=== PATIENT | female | born 1995 | race Caucasian/White ===

== ENCOUNTER → 2017-01-07 | Outpatient (CLI) | payer BC ==
[2017-01-07 15:47] LABS: CHLORIDE,CL 103 mmol/L (98-110); SODIUM,NA 139 mmol/L (136-146)
== END ==
LOC: MW.CHFP 14:47
PROVIDERS: ATTEND Physician Assistant
DX: J02.9 Acute pharyngitis, unspecified (principal); R50.9 Fever, unspecified; R63.4 Abnormal weight loss; R30.0 Dysuria
CPT/HCPCS: 36415; 80053; 81001; 85025; 85652; 86308; 87081; 87086; 87880

== ENCOUNTER → 2017-01-10 | Outpatient (CLI) | payer BC | LOC: MW.CHFP 08:33 | PROVIDERS: ATTEND Nurse Practitioner Family | DX: R39.9 Unspecified symptoms and signs involving the genitourinary system (principal) | CPT/HCPCS: 81001; 87086 ==

== ENCOUNTER 2018-07-30 10:23 | Inpatient (IN) | payer BC ==
[2018-07-30] MEDS ORDERED: Methylergonovine 0.2 MG/1 ML Amp IM PRN (10:55)
[2018-07-30] MEDS ORDERED: Water For Irrigation,Sterile 1,000 ML Container IRR PRN (10:55)
[2018-07-30] MEDS ORDERED: Sodium Chloride 0.9% 10 ML Syringe FLUSH PRN (10:55)
[2018-07-30] MEDS ORDERED: Nalbuphine 10 MG/1 ML Vial IVPUSH PRN (10:55)
[2018-07-30] MEDS ORDERED: Tranexamic Acid 1,000 MG in Sodium Chloride 0.9% 100 ML IV PRN (10:55)
[2018-07-30] MEDS ORDERED: Butorphanol 1 MG/ML SDV IVPUSH PRN (10:55)
[2018-07-30] MEDS ORDERED: Lidocaine 1% 50 ML MDV INJECT PRN (10:55)
[2018-07-30] MEDS ORDERED: Sodium Chloride 0.9% 2.5 ML Syringe FLUSH PRN (10:55)
[2018-07-30] MEDS ORDERED: Misoprostol 200 MCG Tab PO PRN (10:55)
[2018-07-30] MEDS ORDERED: Carboprost Tromethamine 250 MCG/1 ML Amp IM PRN (10:55)
[2018-07-30] MEDS ORDERED: Oxytocin/0.9 % Sodium Chloride 30 UNIT/500 ML BAG IV SCH ×2 (11:00→18:00)
[2018-07-30] MEDS ORDERED: Ondansetron 4 MG/2 ML SDV IVPUSH PRN (11:47)
[2018-07-30] MEDS: Lactated Ringers 1,000 ML IV SCH ×4 (14:04→21:45)
--- NOTE | 2018-07-30 15:14 | PCM.PREANE ---
Preanesthetic Assessment - Anesthesia/Transfusion/Family Hx Family History of Anesthesia Reaction: No - Review of Systems General: No Symptoms Pulmonary: No Symptoms Cardiovascular: No Symptoms Gastrointestinal: No Symptoms Neurological: No Symptoms Other: Reports: None (Denies any personal or family hx of bleeding or clotting problems) - Physical Assessment Height: 1.73 m Weight: 138.346 kg ASA Class: 3 Mental Status: Alert & Oriented x3 Airway Class: Mallampati = 3 Dentition: Reports: Normal Dentition ROM/Head Extension: Full - Lab Values: Laboratory Last Values WBC 13.96 K/uL (4.0-11.0) H 07/30/18 11:05 RBC 4.60 M/uL (4.30-5.90) 07/30/18 11:05 Hgb 13.3 g/dL (12.0-16.0) 07/30/18 11:05 Hct 38.9 % (36.0-46.0) 07/30/18 11:05 MCV 84.6 fL (80.0-98.0) 07/30/18 11:05 MCH 28.9 pg (27.0-32.0) 07/30/18 11:05 MCHC 34.2 g/dL (31.0-37.0) 07/30/18 11:05 RDW Std Deviation 44.8 fl (28.0-62.0) 07/30/18 11:05 RDW Coeff of Lopez 15 % (11.0-15.0) 07/30/18 11:05 Plt Count 219 K/uL (150-400) 07/30/18 11:05 MPV 8.40 fL (7.40-12.00) 07/30/18 11:05 Nucleated RBC % 0.0 /100WBC 07/30/18 11:05 Nucleated RBCs # 0 K/uL 07/30/18 11:05 Blood Type A NEGATIVE 07/30/18 11:05 Antibody Screen NEGATIVE 07/30/18 11:05 - Allergies Allergies/Adverse Reactions: Allergies Allergy/AdvReac Type Severity Reaction Status Date / Time No Known Allergies Allergy Verified 11/25/15 15:54 - Acknowledgements Anesthesia Type Planned: Epidural Pt an Appropriate Candidate for the Planned Anesthesia: Yes Alternatives and Risks of Anesthesia Discussed w Pt/Guardian: Yes Pt/Guardian Understands and Agrees with Anesthesia Plan: Yes PreAnesthesia Questionnaire - Past Health History Medical/Surgical History: Denies Medical/Surgical History - Past Surgical History HEENT Surgical History: Reports: Adenoidectomy, Tonsillectomy Other HEENT Surgeries/Procedures: bilateral ear surgery as an , - HOME MEDS Home Medications: Home Meds Docusate Sodium [Colace] 50 mg PO BID PRN 07/30/18 [History] Doxylamine Succinate [Unisom Sleep Aid] 25 mg PO BEDTIME PRN 07/30/18 [History] Iron 27 mg PO DAILY 07/30/18 [History] Ondansetron HCl [Zofran] 4 mg PO 07/30/18 [History] DSY523/Iron Fumarate/FA/DSS [ 19 Tablet] 1 each PO DAILY 07/30/18 [ History] - CURRENT (IN HOUSE) MEDS Current Meds: Current Medications Butorphanol Tartrate (Stadol) 1 mg IVPUSH Q1H PRN PRN Reason: Pain Last Admin: 07/30/18 14:04 Dose: 1 mg Carboprost Tromethamine (Hemabate Ds) 250 mcg IM ASDIRECTED PRN PRN Reason: Post Hemorrhage Lactated Ringer's (Ringers, Lactated) 1,000 mls @ 150 mls/hr IV ASDIRECTED NELLI Last Admin: 07/30/18 14:55 Dose: 150 mls/hr Oxytocin/Sodium Chloride (Oxytocin 30 Unit/500 Ml-Ns) 30 unit in 500 mls @ 500 mls/hr IV TITRATE NELLI Tranexamic Acid 1,000 mg/ (Sodium Chloride) 110 mls @ 660 mls/hr IV ONETIME PRN PRN Reason: Bleeding Lidocaine HCl (Xylocaine 1%) 50 ml INJECT ONETIME PRN PRN Reason: Laceration repair Methylergonovine Maleate (Methergine) 0.2 mg IM ASDIRECTED PRN PRN Reason: Post Hemorrhage Misoprostol (Cytotec) 200 mcg PO ONETIME PRN PRN Reason: Post Hemorrhage Nalbuphine HCl (Nubain) 10 mg IVPUSH Q1H PRN PRN Reason: Pain (severe 7-10) Ondansetron HCl (Zofran) 4 mg IVPUSH Q6H PRN PRN Reason: Nausea/Vomiting Sodium Chloride (Saline Flush) 10 ml FLUSH ASDIRECTED PRN PRN Reason: Keep Vein Open Sodium Chloride (Saline Flush) 2.5 ml FLUSH ASDIRECTED PRN PRN Reason: Keep Vein Open Sterile Water (Sterile Water For Irrigation) 1,000 ml IRR ASDIRECTED PRN PRN Reason: delivery Discontinued Medications Fentanyl/Bupivacaine HCl (Kzwxopfz-Gabpu-Ya 2 Mcg/Ml-0.125%) Confirm Administered Dose 100 mls @ as directed EP .[facility] ONE Stop: 07/30/18 14:26
--- NOTE | 2018-07-30 23:37 | PCM.DEL ---
L & D Note - General Info Date of Service: 07/30/18 - Delivery Note Labor: Spontaneous, Augmented by ARM Delivery Outcome: Livebirth Presentation: Right Occiput Anterior (DOMINIC) Nuchal Cord: None Anesthesia Type: Epidural Anesthetic: Lidocaine (Xylocaine) 1% Plain Local Anesthetic Volume: 3cc Amniotic Fluid Description: Meconium Stained Laceration: 3rd Degree Suture type: Vicryl, Other (Fibers of anal sphincter repaired with vicryl 2.0 in an overlapping fashion .vagina mucosa and perineal skin repaired with monocryl 2.0 ) Placenta: Intact Cord: 3 Vessels Estimated Blood Loss: 400 Resuscitation Needed: No [place]: Bulb Syringe Score 1 min: 9 Score 5 min: 9 Delivery Comments (Free Text/Narrative):: Live male delivered at 2149 9/9 weight 3810g 3rd degree laceration noted , anal sphincter repaired with 2.0 vicryl and vagina mucosa and perineal body repaired with 2.0 monocryl - General Info Date of Service: 07/30/18 - Patient Data Weight - Most Recent: 138.346 kg Lab Results Last 24 Hours: Laboratory Results - last 24 hr 07/30/18 07/30/18 Range/Units 11:05 11:05 WBC 13.96 H (4.0-11.0) K/uL RBC 4.60 (4.30-5.90) M/uL Hgb 13.3 (12.0-16.0) g/dL Hct 38.9 (36.0-46.0) % MCV 84.6 (80.0-98.0) fL MCH 28.9 (27.0-32.0) pg MCHC 34.2 (31.0-37.0) g/dL RDW Std Deviation 44.8 (28.0-62.0) fl RDW Coeff of Lopez 15 (11.0-15.0) % Plt Count 219 (150-400) K/uL MPV 8.40 (7.40-12.00) fL Nucleated RBC % 0.0 /100WBC Nucleated RBCs # 0 K/uL Blood Type A NEGATIVE Antibody Screen NEGATIVE Med Orders - Current: Current Medications Butorphanol Tartrate (Stadol) 1 mg IVPUSH Q1H PRN PRN Reason: Pain Last Admin: 07/30/18 14:04 Dose: 1 mg Carboprost Tromethamine (Hemabate Ds) 250 mcg IM ASDIRECTED PRN PRN Reason: Post Hemorrhage Lactated Ringer's (Ringers, Lactated) 1,000 mls @ 150 mls/hr IV ASDIRECTED NELLI Last Admin: 07/30/18 21:45 Dose: 150 mls/hr Oxytocin/Sodium Chloride (Oxytocin 30 Unit/500 Ml-Ns) 30 unit in 500 mls @ 500 mls/hr IV TITRATE NELLI Last Admin: 07/30/18 22:41 Dose: 500 mls/hr Tranexamic Acid 1,000 mg/ (Sodium Chloride) 110 mls @ 660 mls/hr IV ONETIME PRN PRN Reason: Bleeding Oxytocin/Sodium Chloride (Oxytocin 30 Unit/500 Ml-Ns) 30 unit in 500 mls @ 2 mls/hr IV TITRATE NELLI; Protocol Last Infusion: 07/30/18 21:49 Dose: 999 munits/min, 999 mls/hr Lidocaine HCl (Xylocaine 1%) 50 ml INJECT ONETIME PRN PRN Reason: Laceration repair Last Admin: 07/30/18 21:55 Dose: 50 ml Methylergonovine Maleate (Methergine) 0.2 mg IM ASDIRECTED PRN PRN Reason: Post Hemorrhage Misoprostol (Cytotec) 200 mcg PO ONETIME PRN PRN Reason: Post Hemorrhage Nalbuphine HCl (Nubain) 10 mg IVPUSH Q1H PRN PRN Reason: Pain (severe 7-10) Ondansetron HCl (Zofran) 4 mg IVPUSH Q6H PRN PRN Reason: Nausea/Vomiting Sodium Chloride (Saline Flush) 10 ml FLUSH ASDIRECTED PRN PRN Reason: Keep Vein Open Sodium Chloride (Saline Flush) 2.5 ml FLUSH ASDIRECTED PRN PRN Reason: Keep Vein Open Sterile Water (Sterile Water For Irrigation) 1,000 ml IRR ASDIRECTED PRN PRN Reason: delivery Last Admin: 07/30/18 22:03 Dose: 1,000 ml Discontinued Medications Fentanyl/Bupivacaine HCl (Ybbtnvbx-Nzabb-Pl 2 Mcg/Ml-0.125%) Confirm Administered Dose 100 mls @ as directed EP .[facility] ONE Stop: 07/30/18 14:26 - Problem List & Annotations (1) Vaginal delivery SNOMED Code(s): 333402559 Code(s): O80 - ENCOUNTER FOR FULL-TERM UNCOMPLICATED DELIVERY Status: Acute Current Visit: Yes - Problem List Review Problem List Initiated/Reviewed/Updated: Yes - My Orders Last 24 Hours: My Active Orders 07/30/18 23:10 RHOGAM, [RHIG WORKUP, ] [BBK] Routine
[2018-07-30] MEDS ORDERED: Witch Hazel Medicated Pads 40/Jar TOP PRN (23:38)
[2018-07-30] MEDS ORDERED: Lanolin 100% Cream 7 GM Tube TOP PRN (23:38)
[2018-07-30] MEDS ORDERED: Ibuprofen 400 MG Tab PO PRN (23:38)
[2018-07-30] MEDS ORDERED: Acetaminophen 500 MG Tab PO PRN ×2 (23:38)
[2018-07-30] MEDS ORDERED: oxyCODONE 5 MG Tab PO PRN (23:38)
[2018-07-30] MEDS ORDERED: Benzocaine/Menthol 20%-0.5% Spray 78 GM Cannister TOP PRN (23:38)
[2018-07-30] MEDS ORDERED: Bisacodyl 10 MG Supp RECTAL PRN (23:38)
[2018-07-30] MEDS ORDERED: Docusate Sodium 100 MG Cap PO PRN (23:38)
[2018-07-31] MEDS ORDERED: Docusate Sodium 100 MG Cap PO PRN (00:52)
[2018-07-31] MEDS ORDERED: Ibuprofen 400 MG Tab PO PRN (00:52)
[2018-07-31] MEDS ORDERED: Acetaminophen 500 MG Tab PO PRN ×2 (00:52)
[2018-07-31] MEDS ORDERED: oxyCODONE 5 MG Tab PO PRN (00:52)
[2018-07-31] MEDS ORDERED: Witch Hazel Medicated Pads 40/Jar TOP PRN (00:52)
[2018-07-31] MEDS ORDERED: Ibuprofen 800 MG Tab PO PRN (00:52)
[2018-07-31] MEDS ORDERED: Benzocaine/Menthol 20%-0.5% Spray 78 GM Cannister TOP PRN (00:52)
[2018-07-31] MEDS ORDERED: Lanolin 100% Cream 7 GM Tube TOP PRN (00:52)
[2018-07-31] MEDS ORDERED: Bisacodyl 10 MG Supp RECTAL PRN (00:52)
[2018-07-31] MEDS: Ibuprofen 800 MG Tab PO PRN ×3 (01:49→20:48)
[2018-07-31] MEDS: Docusate Sodium 100 MG Cap PO SCH ×2 (08:10→20:47)
--- NOTE | 2018-07-31 08:16 | PCM.PNPP ---
<Latia Perez - Last Filed: 07/31/18 08:14> - General Info Date of Service: 07/31/18 Functional Status: Reports: Pain Controlled, Tolerating Diet, Ambulating, Urinating - Review of Systems General: Denies: Fever, Weakness, Fatigue Pulmonary: Denies: Shortness of Breath, Pleuritic Chest Pain, Cough Cardiovascular: Denies: Chest Pain, Palpitations, Dyspnea on Exertion Gastrointestinal: Denies: Abdominal Pain Genitourinary: Denies: Dysuria - General Info Date of Service: 07/31/18 - Patient Data Vital Signs - Most Recent: Last Vital Signs Temp 36.8 C 07/31/18 04:56 Pulse 74 07/31/18 04:56 Resp 16 07/31/18 04:56 BP 108/51 L 07/31/18 04:56 Pulse Ox 98 07/31/18 04:56 Weight - Most Recent: 138.346 kg I&O - Last 24 Hours: Intake & Output 07/30/18 07/31/18 07/31/18 22:59 06:59 14:59 Intake Total 2 Balance 2 Lab Results - Last 24 Hours: Laboratory Results - last 24 hr 07/30/18 07/30/18 07/30/18 Range/Units 11:05 11:05 23:10 WBC 13.96 H (4.0-11.0) K/uL RBC 4.60 (4.30-5.90) M/uL Hgb 13.3 (12.0-16.0) g/dL Hct 38.9 (36.0-46.0) % MCV 84.6 (80.0-98.0) fL MCH 28.9 (27.0-32.0) pg MCHC 34.2 (31.0-37.0) g/dL RDW Std Deviation 44.8 (28.0-62.0) fl RDW Coeff of Lopez 15 (11.0-15.0) % Plt Count 219 (150-400) K/uL MPV 8.40 (7.40-12.00) fL Nucleated RBC % 0.0 /100WBC Nucleated RBCs # 0 K/uL Blood Type A NEGATIVE Antibody Screen NEGATIVE Screen NEGATIVE (NEGATIVE) RhIG Candidate? YES Rhogam Indicated YES, BABY RH POS H KB Screen Cancelled KB Cells Counted Cancelled KB Red Cells Counted Cancelled KB % Cells Cancelled Doses of RhIg Required Cancelled 07/31/18 Range/Units 05:00 WBC (4.0-11.0) K/uL RBC (4.30-5.90) M/uL Hgb 10.9 L (12.0-16.0) g/dL Hct 32.7 L (36.0-46.0) % MCV (80.0-98.0) fL MCH (27.0-32.0) pg MCHC (31.0-37.0) g/dL RDW Std Deviation (28.0-62.0) fl RDW Coeff of Lopez (11.0-15.0) % Plt Count (150-400) K/uL MPV (7.40-12.00) fL Nucleated RBC % /100WBC Nucleated RBCs # K/uL Blood Type Antibody Screen Screen (NEGATIVE) RhIG Candidate? Rhogam Indicated KB Screen KB Cells Counted KB Red Cells Counted KB % Cells Doses of RhIg Required Med Orders - Current: Current Medications Acetaminophen (Tylenol Extra Strength) 500 mg PO Q4H PRN PRN Reason: Pain Acetaminophen (Tylenol Extra Strength) 1,000 mg PO Q4H PRN PRN Reason: Pain Acetaminophen (Tylenol Extra Strength) 500 mg PO Q4H PRN PRN Reason: Pain Acetaminophen (Tylenol Extra Strength) 1,000 mg PO Q4H PRN PRN Reason: Pain Benzocaine/Menthol (Dermoplast Pain Relief 20%-0.5% [place]) 78 gm TOP ASDIRECTED PRN PRN Reason: Perineal Comfort Measure Last Admin: 07/31/18 01:50 Dose: 1 canister Benzocaine/Menthol (Dermoplast Pain Relief 20%-0.5% [place]) 78 gm TOP ASDIRECTED PRN PRN Reason: Perineal Comfort Measure Bisacodyl (Dulcolax) 10 mg RECTAL ONETIME PRN PRN Reason: Constipation Bisacodyl (Dulcolax) 10 mg RECTAL ONETIME PRN PRN Reason: Constipation Carboprost Tromethamine (Hemabate Ds) 250 mcg IM ASDIRECTED PRN PRN Reason: Post Hemorrhage Docusate Sodium (Colace) 100 mg PO BID PRN PRN Reason: Constipation Docusate Sodium (Colace) 100 mg PO BID [facility] Last Admin: 07/31/18 08:10 Dose: 100 mg Docusate Sodium (Colace) 100 mg PO BID PRN PRN Reason: Constipation Emollient Ointment (Lansinoh Hpa) 0 gm TOP ASDIRECTED PRN PRN Reason: Sore Nipples Emollient Ointment (Lansinoh Hpa) 0 gm TOP ASDIRECTED PRN PRN Reason: Sore Nipples Lactated Ringer's (Ringers, Lactated) 1,000 mls @ 150 mls/hr IV ASDIRECTED NELLI Last Admin: 07/30/18 21:45 Dose: 150 mls/hr Oxytocin/Sodium Chloride (Oxytocin 30 Unit/500 Ml-Ns) 30 unit in 500 mls @ 500 mls/hr IV TITRATE [facility] Last Admin: 07/30/18 22:41 Dose: 500 mls/hr Tranexamic Acid 1,000 mg/ (Sodium Chloride) 110 mls @ 660 mls/hr IV ONETIME PRN PRN Reason: Bleeding Oxytocin/Sodium Chloride (Oxytocin 30 Unit/500 Ml-Ns) 30 unit in 500 mls @ 2 mls/hr IV TITRATE [facility]; Protocol Last Infusion: 07/30/18 21:49 Dose: 999 munits/min, 999 mls/hr Ibuprofen (Motrin) 400 mg PO Q4H PRN PRN Reason: Pain Ibuprofen (Motrin) 800 mg PO Q6H PRN PRN Reason: Pain Last Admin: 07/31/18 08:11 Dose: 800 mg Ibuprofen (Motrin) 400 mg PO Q4H PRN PRN Reason: Pain Ibuprofen (Motrin) 800 mg PO Q6H PRN PRN Reason: Pain Lidocaine HCl (Xylocaine 1%) 50 ml INJECT ONETIME PRN PRN Reason: Laceration repair Last Admin: 07/30/18 21:55 Dose: 50 ml Methylergonovine Maleate (Methergine) 0.2 mg IM ASDIRECTED PRN PRN Reason: Post Hemorrhage Misoprostol (Cytotec) 200 mcg PO ONETIME PRN PRN Reason: Post Hemorrhage Ondansetron HCl (Zofran) 4 mg IVPUSH Q6H PRN PRN Reason: Nausea/Vomiting Oxycodone HCl (Oxycodone) 5 mg PO Q2H PRN PRN Reason: Pain Oxycodone HCl (Oxycodone) 5 mg PO Q2H PRN PRN Reason: Pain Sodium Chloride (Saline Flush) 10 ml FLUSH ASDIRECTED PRN PRN Reason: Keep Vein Open Sodium Chloride (Saline Flush) 2.5 ml FLUSH ASDIRECTED PRN PRN Reason: Keep Vein Open Sterile Water (Sterile Water For Irrigation) 1,000 ml IRR ASDIRECTED PRN PRN Reason: delivery Last Admin: 07/30/18 22:03 Dose: 1,000 ml Witch Ivette (Tucks) 1 pad TOP ASDIRECTED PRN PRN Reason: comfort care Witch Ivette (Tucks) 1 pad TOP ASDIRECTED PRN PRN Reason: comfort care Discontinued Medications Butorphanol Tartrate (Stadol) 1 mg IVPUSH Q1H PRN PRN Reason: Pain Last Admin: 07/30/18 14:04 Dose: 1 mg Nalbuphine HCl (Nubain) 10 mg IVPUSH Q1H PRN PRN Reason: Pain (severe 7-10) - Interaction Infant Disposition, : in Room with Family Interaction: Holding Infant Feeding: Attempted ; Nursed Fair/Poor Support Person: Significant Other - Recovery Exam Fundal Tone: Firm Fundal Level: 1 Fingerbreadths Below Umbilicus Fundal Placement: Midline Lochia Amount: Scant Lochia Color: Rubra/Red Episiotomy/Laceration: None Bladder Status: Voiding Urinary Elimination: Voided - Exam General: Alert, Oriented Neck: Supple Lungs: Clear to Auscultation, Normal Respiratory Effort Cardiovascular: Regular Rate, Regular Rhythm GI/Abdominal Exam: Normal Bowel Sounds, Soft, Non-Tender, No Distention Extremities: Normal Inspection, Normal Capillary Refill, Pedal Edema (trace) Skin: Warm, Dry, Intact - Problem List & Annotations (1) Vaginal delivery SNOMED Code(s): 836085969 Code(s): O80 - ENCOUNTER FOR FULL-TERM UNCOMPLICATED DELIVERY Status: Acute Current Visit: Yes - Problem List Review Problem List Initiated/Reviewed/Updated: Yes - Assessment Assessment:: PPD #1 s/p , 3rd degree laceration. Minimal pain and lochia. Work on breast feeding today. Anticipate discharge home tomorrow. - Plan Plan:: Continue routine post- cares. <Lidya Zendejas - Last Filed: 07/31/18 19:07> - Patient Data Vital Signs - Most Recent: Last Vital Signs Temp 36.8 C 07/31/18 16:00 Pulse 86 07/31/18 16:00 Resp 18 07/31/18 16:00 BP 109/50 L 07/31/18 16:00 Pulse Ox 97 07/31/18 16:00 I&O - Last 24 Hours: Intake & Output 07/31/18 07/31/18 07/31/18 06:59 14:59 22:59 Intake Total 2 Balance 2 Lab Results - Last 24 Hours: Laboratory Results - last 24 hr 07/30/18 07/31/18 Range/Units 23:10 05:00 Hgb 10.9 L (12.0-16.0) g/dL Hct 32.7 L (36.0-46.0) % Screen NEGATIVE (NEGATIVE) RhIG Candidate? YES Rhogam Indicated YES, BABY RH POS H KB Screen Cancelled KB Cells Counted Cancelled KB Red Cells Counted Cancelled KB % Cells Cancelled Doses of RhIg Required Cancelled Med Orders - Current: Current Medications Acetaminophen (Tylenol Extra Strength) 500 mg PO Q4H PRN PRN Reason: Pain Acetaminophen (Tylenol Extra Strength) 1,000 mg PO Q4H PRN PRN Reason: Pain Acetaminophen (Tylenol Extra Strength) 500 mg PO Q4H PRN PRN Reason: Pain Acetaminophen (Tylenol Extra Strength) 1,000 mg PO Q4H PRN PRN Reason: Pain Benzocaine/Menthol (Dermoplast Pain Relief 20%-0.5% [place]) 78 gm TOP ASDIRECTED PRN PRN Reason: Perineal Comfort Measure Last Admin: 07/31/18 01:50 Dose: 1 canister Benzocaine/Menthol (Dermoplast Pain Relief 20%-0.5% [place]) 78 gm TOP ASDIRECTED PRN PRN Reason: Perineal Comfort Measure Bisacodyl (Dulcolax) 10 mg RECTAL ONETIME PRN PRN Reason: Constipation Bisacodyl (Dulcolax) 10 mg RECTAL ONETIME PRN PRN Reason: Constipation Carboprost Tromethamine (Hemabate Ds) 250 mcg IM ASDIRECTED PRN PRN Reason: Post Hemorrhage Docusate Sodium (Colace) 100 mg PO BID PRN PRN Reason: Constipation Docusate Sodium (Colace) 100 mg PO BID [facility] Last Admin: 07/31/18 08:10 Dose: 100 mg Docusate Sodium (Colace) 100 mg PO BID PRN PRN Reason: Constipation Emollient Ointment (Lansinoh Hpa) 0 gm TOP ASDIRECTED PRN PRN Reason: Sore Nipples Emollient Ointment (Lansinoh Hpa) 0 gm TOP ASDIRECTED PRN PRN Reason: Sore Nipples Lactated Ringer's (Ringers, Lactated) 1,000 mls @ 150 mls/hr IV ASDIRECTED NELLI Last Admin: 07/30/18 21:45 Dose: 150 mls/hr Oxytocin/Sodium Chloride (Oxytocin 30 Unit/500 Ml-Ns) 30 unit in 500 mls @ 500 mls/hr IV TITRATE [facility] Last Admin: 07/30/18 22:41 Dose: 500 mls/hr Tranexamic Acid 1,000 mg/ (Sodium Chloride) 110 mls @ 660 mls/hr IV ONETIME PRN PRN Reason: Bleeding Oxytocin/Sodium Chloride (Oxytocin 30 Unit/500 Ml-Ns) 30 unit in 500 mls @ 2 mls/hr IV TITRATE [facility]; Protocol Last Infusion: 07/30/18 21:49 Dose: 999 munits/min, 999 mls/hr Ibuprofen (Motrin) 400 mg PO Q4H PRN PRN Reason: Pain Ibuprofen (Motrin) 800 mg PO Q6H PRN PRN Reason: Pain Last Admin: 07/31/18 08:11 Dose: 800 mg Ibuprofen (Motrin) 400 mg PO Q4H PRN PRN Reason: Pain Ibuprofen (Motrin) 800 mg PO Q6H PRN PRN Reason: Pain Lidocaine HCl (Xylocaine 1%) 50 ml INJECT ONETIME PRN PRN Reason: Laceration repair Last Admin: 07/30/18 21:55 Dose: 50 ml Methylergonovine Maleate (Methergine) 0.2 mg IM ASDIRECTED PRN PRN Reason: Post Hemorrhage Misoprostol (Cytotec) 200 mcg PO ONETIME PRN PRN Reason: Post Hemorrhage Ondansetron HCl (Zofran) 4 mg IVPUSH Q6H PRN PRN Reason: Nausea/Vomiting Oxycodone HCl (Oxycodone) 5 mg PO Q2H PRN PRN Reason: Pain Oxycodone HCl (Oxycodone) 5 mg PO Q2H PRN PRN Reason: Pain Sodium Chloride (Saline Flush) 10 ml FLUSH ASDIRECTED PRN PRN Reason: Keep Vein Open Sodium Chloride (Saline Flush) 2.5 ml FLUSH ASDIRECTED PRN PRN Reason: Keep Vein Open Sterile Water (Sterile Water For Irrigation) 1,000 ml IRR ASDIRECTED PRN PRN Reason: delivery Last Admin: 07/30/18 22:03 Dose: 1,000 ml Witch Ivette (Tucks) 1 pad TOP ASDIRECTED PRN PRN Reason: comfort care Witch Ivette (Tucks) 1 pad TOP ASDIRECTED PRN PRN Reason: comfort care Discontinued Medications Butorphanol Tartrate (Stadol) 1 mg IVPUSH Q1H PRN PRN Reason: Pain Last Admin: 07/30/18 14:04 Dose: 1 mg Nalbuphine HCl (Nubain) 10 mg IVPUSH Q1H PRN PRN Reason: Pain (severe 7-10) - Problem List & Annotations (1) Vaginal delivery SNOMED Code(s): 376396385 Code(s): O80 - ENCOUNTER FOR FULL-TERM UNCOMPLICATED DELIVERY Status: Acute Current Visit: Yes - My Orders Last 24 Hours: My Active Orders 07/30/18 23:38 Patient Status [ADT] Routine Vital Signs [RC] PER UNIT ROUTINE Acetaminophen [Tylenol Extra Strength] 1,000 mg PO Q4H PRN Acetaminophen [Tylenol Extra Strength] 500 mg PO Q4H PRN Benzocaine/Menthol [Dermoplast Pain Relief 20%-0.5% [place]] 78 gm TOP ASDIRECTED PRN Bisacodyl [Dulcolax] 10 mg RECTAL ONETIME PRN Docusate Sodium [Colace] 100 mg PO BID PRN Ibuprofen [Motrin] 400 mg PO Q4H PRN Ibuprofen [Motrin] 800 mg PO Q6H PRN Lanolin [Lansinoh HPA] See Dose Instructions TOP ASDIRECTED PRN Witch Ivette [Tucks] 1 pad TOP ASDIRECTED PRN oxyCODONE 5 mg PO Q2H PRN Assess Lochia [WOMSER] Per Unit Routine Assess Uterine Involution [WOMSER] Per Unit Routine Peripheral IV Discontinue [OM.PC] Routine 07/31/18 00:52 Patient Status [ADT] Routine May Shower [RC] ASDIRECTED Up ad Izzy [RC] ASDIRECTED Acetaminophen [Tylenol Extra Strength] 1,000 mg PO Q4H PRN Acetaminophen [Tylenol Extra Strength] 500 mg PO Q4H PRN Benzocaine/Menthol [Dermoplast Pain Relief 20%-0.5% [place]] 78 gm TOP ASDIRECTED PRN Bisacodyl [Dulcolax] 10 mg RECTAL ONETIME PRN Docusate Sodium [Colace] 100 mg PO BID PRN Ibuprofen [Motrin] 400 mg PO Q4H PRN Ibuprofen [Motrin] 800 mg PO Q6H PRN Lanolin [Lansinoh HPA] See Dose Instructions TOP ASDIRECTED PRN Witch Ivette [Tucks] 1 pad TOP ASDIRECTED PRN oxyCODONE 5 mg PO Q2H PRN Assess Lochia [WOMSER] Per Unit Routine Assess Uterine Involution [WOMSER] Per Unit Routine Peripheral IV Discontinue [OM.PC] Routine Resuscitation Status Routine 07/31/18 09:00 Docusate Sodium [Colace] 100 mg PO BID 07/31/18 Breakfast Low Residue [Low Fiber Diet] [DIET] 08/01/18 05:11 HEMOGLOBIN/HEMATOCRIT,HH [HEME] Timed - Assessment Assessment:: PPD 1 s/p 3rd degree laceration , Has some perineal soreness - Plan Plan:: Continue care
--- NOTE | 2018-07-31 09:20 | PCM48HPAN ---
Post Anesthesia Note - EVALUATION WITHIN 48HRS OF ANESTHETIC Vital Signs in Normal Range: Yes Patient Participated in Evaluation: Yes Respiratory Function Stable: Yes Airway Patent: Yes Cardiovascular Function Stable: Yes Hydration Status Stable: Yes Pain Control Satisfactory: Yes Nausea and Vomiting Control Satisfactory: Yes Mental Status Recovered: Yes Resp Rate: 16 - COMMENTS/OBSERVATIONS Free Text/Narrative:: Denies any complaints
--- NOTE | 2018-07-31 14:52 | OR ---
SURGEON: PIETER HUANG DATE OF PROCEDURE: 07/30/2018 PREOPERATIVE DIAGNOSES: A 23-year-old, G1, P0 at 39 weeks and 1 day, who admitted in early labor. Polyhydramnios Suspected Macrosomia POSTOPERATIVE DIAGNOSES: 1. A 23-year-old, G1, P0 at 39 weeks and 1 day, who admitted in early labor. 2. Polyhydramnios, 3. Suspected macrosomia. PROCEDURE: Normal spontaneous vaginal delivery and repair of third-degree laceration. ESTIMATED BLOOD LOSS: 100 mL. ANESTHESIA: Epidural. BRIEF HISTORY ABOUT THE PATIENT: A 23-year-old, G1, P0, at 39 weeks and 1 day, who came in in early labor. When she came in, she was 6, 90, -1. The patient had a history of polyhydramnios and suspected macrosomia. The patient was 6, 90, -1. AROM was performed. Thick meconium was noted. The patient made progress, soon fully dilated, and she was encouraged to push. FINDINGS: Live male delivered at 2149 hours. scores were 9 and 9. Weight is 3810 g. PROCEDURE IN DETAIL: With the patient being fully dilated, she was encouraged to push. She had very good pushing effort. She delivered the baby in the PEGGY position. The head of the baby was delivered, followed by the anterior and posterior shoulder. The body was delivered. The infant was placed on maternal abdomen. Delayed cord clamping was observed. The cord was clamped and cut. The cord blood gases were obtained. The placenta was delivered via controlled cord traction. Then, the perineum was inspected. She was noted to have a third-degree laceration. She also had a right labial laceration. A rectal exam was done to note the extent. The external anal sphincter was then sutured with 2-0 Vicryl in an overlapping fashion. Then, the perineal laceration was repaired in layers. The perineum was inspected and noted to be hemostatic. A rectal exam was done, and sphincter was noted to be intact. The right labial laceration was also sutured with 1 stitch of 2-0 Monocryl. The patient was also given an extra dose of Pitocin for uterine contraction. All instrument and pad counts were correct x2. The patient tolerated the procedure well. She was left in Labor and Delivery with the in stable condition. REE / SEAN RYAN: 07/31/2018 06:30:31 /[id number] MTDD
[2018-08-01 04:55] VITALS: BP 102/59
[2018-08-01] MEDS: Ibuprofen 800 MG Tab PO PRN (06:04)
--- NOTE | 2018-08-01 07:45 | PCM.PNPP ---
- General Info Date of Service: 08/01/18 Functional Status: Reports: Pain Controlled, Tolerating Diet, Ambulating, Urinating - Review of Systems General: Denies: Fever HEENT: Denies: Headaches Pulmonary: Denies: Shortness of Breath, Pleuritic Chest Pain Cardiovascular: Denies: Chest Pain, Palpitations Gastrointestinal: Denies: Abdominal Pain, Constipation Genitourinary: Denies: Dysuria, Incontinence, Flank Pain - General Info Date of Service: 08/01/18 - Patient Data Vital Signs - Most Recent: Last Vital Signs Temp 36.7 C 08/01/18 04:00 Pulse 67 08/01/18 04:00 Resp 16 08/01/18 04:00 BP 102/59 L 08/01/18 04:00 Pulse Ox 98 08/01/18 04:00 Weight - Most Recent: 305 lb Lab Results - Last 24 Hours: Laboratory Results - last 24 hr 08/01/18 Range/Units 05:53 Hgb 10.2 L (12.0-16.0) g/dL Hct 30.7 L (36.0-46.0) % Med Orders - Current: Current Medications Acetaminophen (Tylenol Extra Strength) 500 mg PO Q4H PRN PRN Reason: Pain Acetaminophen (Tylenol Extra Strength) 1,000 mg PO Q4H PRN PRN Reason: Pain Last Admin: 08/01/18 00:42 Dose: 1,000 mg Acetaminophen (Tylenol Extra Strength) 500 mg PO Q4H PRN PRN Reason: Pain Acetaminophen (Tylenol Extra Strength) 1,000 mg PO Q4H PRN PRN Reason: Pain Benzocaine/Menthol (Dermoplast Pain Relief 20%-0.5% [place]) 78 gm TOP ASDIRECTED PRN PRN Reason: Perineal Comfort Measure Last Admin: 07/31/18 01:50 Dose: 1 canister Benzocaine/Menthol (Dermoplast Pain Relief 20%-0.5% [place]) 78 gm TOP ASDIRECTED PRN PRN Reason: Perineal Comfort Measure Bisacodyl (Dulcolax) 10 mg RECTAL ONETIME PRN PRN Reason: Constipation Bisacodyl (Dulcolax) 10 mg RECTAL ONETIME PRN PRN Reason: Constipation Carboprost Tromethamine (Hemabate Ds) 250 mcg IM ASDIRECTED PRN PRN Reason: Post Hemorrhage Docusate Sodium (Colace) 100 mg PO BID PRN PRN Reason: Constipation Docusate Sodium (Colace) 100 mg PO BID [facility] Last Admin: 07/31/18 20:47 Dose: 100 mg Docusate Sodium (Colace) 100 mg PO BID PRN PRN Reason: Constipation Emollient Ointment (Lansinoh Hpa) 0 gm TOP ASDIRECTED PRN PRN Reason: Sore Nipples Emollient Ointment (Lansinoh Hpa) 0 gm TOP ASDIRECTED PRN PRN Reason: Sore Nipples Lactated Ringer's (Ringers, Lactated) 1,000 mls @ 150 mls/hr IV ASDIRECTED NELLI Last Admin: 07/30/18 21:45 Dose: 150 mls/hr Oxytocin/Sodium Chloride (Oxytocin 30 Unit/500 Ml-Ns) 30 unit in 500 mls @ 500 mls/hr IV TITRATE [facility] Last Admin: 07/30/18 22:41 Dose: 500 mls/hr Tranexamic Acid 1,000 mg/ (Sodium Chloride) 110 mls @ 660 mls/hr IV ONETIME PRN PRN Reason: Bleeding Oxytocin/Sodium Chloride (Oxytocin 30 Unit/500 Ml-Ns) 30 unit in 500 mls @ 2 mls/hr IV TITRATE [facility]; Protocol Last Infusion: 07/30/18 21:49 Dose: 999 munits/min, 999 mls/hr Ibuprofen (Motrin) 400 mg PO Q4H PRN PRN Reason: Pain Ibuprofen (Motrin) 800 mg PO Q6H PRN PRN Reason: Pain Last Admin: 08/01/18 06:04 Dose: 800 mg Ibuprofen (Motrin) 400 mg PO Q4H PRN PRN Reason: Pain Ibuprofen (Motrin) 800 mg PO Q6H PRN PRN Reason: Pain Lidocaine HCl (Xylocaine 1%) 50 ml INJECT ONETIME PRN PRN Reason: Laceration repair Last Admin: 07/30/18 21:55 Dose: 50 ml Methylergonovine Maleate (Methergine) 0.2 mg IM ASDIRECTED PRN PRN Reason: Post Hemorrhage Misoprostol (Cytotec) 200 mcg PO ONETIME PRN PRN Reason: Post Hemorrhage Ondansetron HCl (Zofran) 4 mg IVPUSH Q6H PRN PRN Reason: Nausea/Vomiting Oxycodone HCl (Oxycodone) 5 mg PO Q2H PRN PRN Reason: Pain Oxycodone HCl (Oxycodone) 5 mg PO Q2H PRN PRN Reason: Pain Sodium Chloride (Saline Flush) 10 ml FLUSH ASDIRECTED PRN PRN Reason: Keep Vein Open Sodium Chloride (Saline Flush) 2.5 ml FLUSH ASDIRECTED PRN PRN Reason: Keep Vein Open Sterile Water (Sterile Water For Irrigation) 1,000 ml IRR ASDIRECTED PRN PRN Reason: delivery Last Admin: 07/30/18 22:03 Dose: 1,000 ml Witch Ivette (Tucks) 1 pad TOP ASDIRECTED PRN PRN Reason: comfort care Witch Ivette (Tucks) 1 pad TOP ASDIRECTED PRN PRN Reason: comfort care Discontinued Medications Butorphanol Tartrate (Stadol) 1 mg IVPUSH Q1H PRN PRN Reason: Pain Last Admin: 07/30/18 14:04 Dose: 1 mg Nalbuphine HCl (Nubain) 10 mg IVPUSH Q1H PRN PRN Reason: Pain (severe 7-10) - Interaction Infant Disposition, : [place] in Room with Family Infant Interaction: Holding Infant Feeding: Attempted ; Nursed Fair/Poor, Continues to Breastfeed, Encouraged to Breastfeed Support Person: Significant Other - Recovery Exam Fundal Tone: Firm Fundal Level: 1 Fingerbreadths Below Umbilicus Fundal Placement: Midline Lochia Amount: Scant Lochia Color: Rubra/Red Perineum Description: Other (see below) Other Perinuem Description: 3rd degree laceration Episiotomy/Laceration: Approximated Bladder Status: Voiding Urinary Elimination: Voided - Exam General: Alert, Oriented Lungs: Clear to Auscultation, Normal Respiratory Effort Cardiovascular: Regular Rate, Regular Rhythm GI/Abdominal Exam: Normal Bowel Sounds Extremities: Non-Tender, Pedal Edema Psy/Mental Status: Alert, Normal Affect, Normal Mood - Problem List & Annotations (1) Vaginal delivery SNOMED Code(s): 824226852 Code(s): O80 - ENCOUNTER FOR FULL-TERM UNCOMPLICATED DELIVERY Status: Acute Current Visit: Yes (2) Third degree perineal laceration SNOMED Code(s): 20024996, 647071626 Code(s): O70.20 - THIRD DEGREE PERINEAL LACERATION DURING DELIVERY, UNSP Status: Acute Current Visit: Yes - Problem List Review Problem List Initiated/Reviewed/Updated: Yes - Assessment Assessment:: PPD 2 s/p with 3rd degree laceration Doing well. Pain better controlled - Plan Plan:: Discharge plan reviewed Nothing in the vagina for 6 weeks Perineal care reviewed- avoidance of constipation and keeping area clean and dry May use OTC meds for pain Bleeding and infection precautions reviewed S/S of blues vs depression reviewed, encouraged to call with any concerns Follow up in 6 weeks at [facility]
[2018-08-01] MEDS: Docusate Sodium 100 MG Cap PO SCH (14:01)
== END 2018-08-01 15:15 | disposition home or self-care (01) | DRG 542 ==
LOC: MW.OBCHECK 10:23 → MW.OB 10:27 → OBSVTOIN 21:49 → MW.OBCHECK 21:56
PROVIDERS: ADMIT Obstetrics & Gynecology; ATTEND Obstetrics & Gynecology
PROC: 10E0XZZ Delivery of Products of Conception, External Approach (ICD-10-PCS; principal; 2018-07-30)
PROC: 0DQR0ZZ Repair Anal Sphincter, Open Approach (ICD-10-PCS; 2018-07-30)
PROC: 00HU33Z Insertion of Infusion Device into Spinal Canal, Percutaneous Approach (ICD-10-PCS; 2018-07-30)
PROC: 10907ZC Drainage of Amniotic Fluid, Therapeutic from Products of Conception, Via Natural or Artificial Opening (ICD-10-PCS; 2018-07-30)
DX: O40.3XX0 Polyhydramnios, third trimester, not applicable or unspecified (principal); O36.63X0 Maternal care for excessive fetal growth, third trimester, not applicable or unspecified; O77.0 Labor and delivery complicated by meconium in amniotic fluid; O70.20 Third degree perineal laceration during delivery, unspecified; Z3A.39 39 weeks gestation of pregnancy; Z37.0 Single live birth
CPT/HCPCS: 36415; 51702; 59025; 59409; 85014; 85018; 85027; 85460; 86850; 86900; 86901; 90686; A9270-GY; J0595; J2590; J2792; J7120

== ENCOUNTER 2021-08-20 13:19 | Emergency (ER) | payer BC, OTHER ==
[2021-08-20] MEDS ORDERED: Ibuprofen 800 MG Tab PO ONE (13:37)
--- NOTE | 2021-08-20 13:56 | EDM.PDOC ---
ED HPI GENERAL MEDICAL PROBLEM - General Chief Complaint: Lower Extremity Injury/Pain Stated Complaint: LEFT FOOT/ANKLE INJURY Time Seen by Provider: 08/20/21 13:32 Source of Information: Reports: Patient History Limitations: Reports: No Limitations - History of Present Illness INITIAL COMMENTS - FREE TEXT/NARRATIVE: HISTORY AND PHYSICAL: History of present illness: Patient is a 26-year-old female who presents emergency room today with concern of left ankle injury that occurred yesterday. Patient states that she was pheasant hunting and was walking on uneven ground. Patient states that she stepped in a golfer hole and states she felt her left ankle pop. Patient states that she continued to soler and walk on the ankle even though she had pain doing so. Patient states that today, her ankle was much more swollen so she came to the emergency room for further evaluation. Patient denies any hitting her head or loss of consciousness. Denies any other resuscitative symptoms. Patient denies fever, chills, chest pain, shortness of breath, or cough. Denies headache, neck stiff ness, change in vision, syncope, or near syncope. Denies nausea, vomiting, abdominal pain, diarrhea, constipation, or dysuria. Has not noted any blood in urine or stool. Patient has been eating and drinking appropriately. Review of systems: As per history of present illness and below otherwise all systems reviewed and negative. Past medical history: As per history of present illness and as reviewed below otherwise noncontributory. Surgical history: As per history of present illness and as reviewed below otherwise noncontributory. Social history: See social history for further information Family history: As per history of present illness and as reviewed below otherwise nonc ontributory. Physical exam: General: Patient is alert, oriented, and in no acute distress. Patient sitting comfortably on exam table. Vitals stable and reviewed by me. HEENT: Atraumatic, normocephalic, pupils equal and reactive bilaterally, negative for conjunctival pallor or scleral icterus, throat clear, neck supple, nontender, trachea midline. No drooling or trismus noted. No meningeal signs. No hot potato voice noted. Lungs: Clear to auscultation, breath sounds equal bilaterally, chest nontender. Heart: S1S2, regular rate and rhythm without overt murmur Abdomen: Soft, nondistended, nontender. Negative for masses or hepatosplenomegaly. Negative for costovertebral tenderness. Pelvis: Stable nontender. Genitourinary: Deferred. Rectal: Deferred. Skin: Intact, warm, dry. No lesions or rashes noted. Extremities: The left lower extremity ankle is moderate to severely edematous with pain to palpation of the lateral malleolus of the left ankle. Dorsalis pedis and posterior tibial pulses are grossly intact and via Doppler. Patient does have limited range of motion of the left ankle due to pain. Intact sensation to light and deep touch of the complete left lower extremity. All compartments soft of the left lower extremity. Patient has remainder range of motion of the left lower extremity. Otherwise, atraumatic, negative for cords or calf pain. Neurovascular unremarkable. Neuro: Awake, alert, oriented. Cranial nerves II through XII unremarkable. Cerebellum unremarkable. Motor and sensory unremarkable throughout. Exam nonfocal. Notes: Signs and symptoms that were prompt return to the ED thoroughly discussed with patient. Discussed importance for follow-up with a primary care provider Voices understanding and is agreeable to plan of care. Denies any further questions or concerns at this time. Diagnostics: Ankle XR, LT Therapeutics: Walking boot, ibuprofen Prescription: None Impression: Left ankle injury / strain Plan: 1. Rest, ice, elevate the affected extremity. You can apply ice 15 minutes on, 15 minutes off. 2. Tylenol and/or Ibuprofen as directed for pain management or discomfort. 3. Follow up with the primary care provider as discussed. Return to the ED as needed and as discussed. Definitive disposition and diagnosis as appropriate pending reevaluation and review of above. left ankle Pain Score (Numeric/FACES): 7 - Related Data Allergies Allergy/AdvReac Type Severity Reaction Status Date / Time No Known Allergies Allergy Verified 08/20/21 13:35 Home Meds: Home Meds Escitalopram Oxalate [Lexapro] 20 mg PO DAILY 08/20/21 [History] Past Medical History - Past Health History Medical/Surgical History: Denies Medical/Surgical History [employer] History: Reports: - Past Surgical History HEENT Surgical History: Reports: Adenoidectomy, Tonsillectomy Other HEENT Surgeries/Procedures: bilateral ear surgery as an infant, Social & Family History - Family History Family Medical History: No Pertinent Family History Oncologic: Reports: Ovarian - Tobacco Use Tobacco Use Status *Q: Never Tobacco User - Recreational Drug Use Recreational Drug Use: No - Living Situation & Occupation Living situation: Reports: Single Occupation: Student Review of Systems - Review of Systems Review Of Systems: Comprehensive ROS is negative, except as noted in HPI. ED EXAM, GENERAL - Physical Exam Exam: See Below (see dictation) Course - Vital Signs Last Recorded V/S: Last Vital Signs Temp 97.8 F 08/20/21 13:33 Pulse 99 08/20/21 13:33 Resp 16 08/20/21 13:33 BP 152/88 H 08/20/21 13:33 Pulse Ox 96 08/20/21 13:33 - Orders/Labs/Meds Orders: Active Orders 24 hr Category Date Time Status DME for Discharge [COMM] Stat Oth 08/20/21 14:08 Ordered Meds: Medications Discontinued Medications Generic Name Dose Route Start Last Admin Trade Name Freq PRN Reason Stop Dose Admin Ibuprofen 800 mg 08/20/21 13:37 08/20/21 13:54 Ibuprofen 800 Mg Tab PO 08/20/21 13:38 800 mg ONETIME ONE Administration Departure - Departure Time of Disposition: 14:10 Disposition: Home, Self-Care 01 Clinical Impression: Left ankle injury Qualifiers: Encounter type: initial encounter Qualified Code(s): S99.912A - Unspecified injury of left ankle, initial encounter Ankle sprain Qualifiers: Encounter type: initial encounter Involved ligament of ankle: unspecified ligament Laterality: left Qualified Code(s): S93.402A - Sprain of unspecified ligament of left ankle, initial encounter - Discharge Information Referrals: Lynnette Saldivar MD [Primary Care Provider] - Forms: ED Department Discharge Additional Instructions: The following information is given to patients seen in the emergency department who are being discharged to home. This information is to outline your options for follow-up care. We provide all patients seen in our emergency department with a follow-up referral. The need for follow-up, as well as the timing and circumstances, are variable depending upon the specifics of your emergency department visit. If you don't have a primary care physician on staff, we will provide you with a referral. We always advise you to contact your personal physician following an emergency department visit to inform them of the circumstance of the visit and for follow-up with them and/or the need for any referrals to a consulting specialist. The emergency department will also refer you to a specialist when appropriate. This referral assures that you have the opportunity for follow-up care with a specialist. All of these measure are taken in an effort to provide you with optimal care, which includes your follow-up. Under all circumstances we always encourage you to contact your private physician who remains a resource for coordinating your care. When calling for follow-up care, please make the office aware that this follow-up is from your recent emergency room visit. If for any reason you are refused follow-up, please contact the [facility] Emergency Department at and asked to speak to the emergency department charge nurse. [facility] [address] [place] [address] [facility] [address] [place] [id number] 1. Rest, ice, elevate the affected extremity. You can apply ice 15 minutes on, 15 minutes off. 2. Tylenol and/or Ibuprofen as directed for pain management or discomfort. 3. Follow up with the primary care provider as discussed. Return to the ED as needed and as discussed. Sepsis Event Note (ED) - Evaluation Sepsis Screening Result: No Definite Risk - Focused Exam Vital Signs: Vital Signs Temp Pulse Resp BP Pulse Ox 08/20/21 13:33 97.8 F 99 16 152/88 H 96 - My Orders Last 24 Hours: My Active Orders 08/20/21 14:08 DME for Discharge [COMM] Stat - Assessment/Plan Last 24 Hours: My Active Orders 08/20/21 14:08 DME for Discharge [COMM] Stat
--- NOTE | 2021-08-20 14:06 | CR ---
Indication: Left ankle injury. Patient states she stepped in a avlery hole yesterday while pheasant hunting. Technique: Left ankle 3 views. Comparison: Left ankle radiographs 03/18/2011. Findings: No acute fracture or dislocation. Ankle mortise is intact. Prominent soft tissue swelling about the ankle. Impression: Prominent soft tissue swelling about the ankle. No other acute findings. Dictated by Justine Sarmiento MD @ 08/20/2021 2:05:24 PM (Electronically Signed)
[2021-08-20 14:29] VITALS: BP 138/69; PULSE 84
== END 2021-08-20 14:30 | disposition home or self-care (01) ==
LOC: MW.ED 13:19
DX: S96.912A Strain of unspecified muscle and tendon at ankle and foot level, left foot, initial encounter (principal); X50.9XXA Other and unspecified overexertion or strenuous movements or postures, initial encounter
CPT/HCPCS: 73610; 99283; A9270